=== PATIENT | female | born 1975 | race Caucasian/White ===

== ENCOUNTER 2017-02-05 01:03 | Emergency (ER) | payer BC | END 2017-02-05 01:50 | disposition home or self-care (01) | LOC: ER 01:03 | DX: M54.2 Cervicalgia (principal); M25.511 Pain in right shoulder; M50.30 Other cervical disc degeneration, unspecified cervical region; X50.0XXA Overexertion from strenuous movement or load, initial encounter; Z79.899 Other long term (current) drug therapy; Z88.5 Allergy status to narcotic agent ==